=== PATIENT | male | born 1970 | race Caucasian/White ===

== ENCOUNTER 2018-08-11 09:34 | Emergency (ER) | payer SELFPAY ==
[2018-08-11] MEDS ORDERED: MECLIZINE HCL 25 MG TABLET PO ONE ×2 (09:54→11:21)
--- NOTE | 2018-08-11 09:55 | ER Document Report ---
ED Medical Screen (RME) - General Chief Complaint: Dizziness Stated Complaint: DIZZINESS Time Seen by Provider: 08/11/18 09:53 Mode of Arrival: Wheelchair Information source: Patient Notes: Patient states that he woke up this morning with blood pressure elevated at 145/101. Patient states that he was feeling dizzy which she describes a sensation as feeling lightheaded and he was diaphoretic. Patient complains of continued lightheadedness. Patient does report that he may have a sinus infection. hx: Hypertension I have greeted and performed a rapid initial assessment of this patient. A comprehensive ED assessment and evaluation of the patient, analysis of test results and completion of the medical decision making process will be conducted by additional ED providers. TRAVEL OUTSIDE OF THE [place] IN LAST 30 DAYS: No - Related Data Allergies/Adverse Reactions: Penicillins Allergy (Verified 08/11/18 09:35) Physical Exam - Vital signs Vitals: Temp Pulse Resp BP Pulse Ox 98.4 F 93 16 138/83 H 97 08/11/18 09:37 08/11/18 09:37 08/11/18 09:37 08/11/18 09:37 08/11/18 09:37 - Cardiovascular Rhythm: Regular Heart sounds: S1 appreciated, S2 appreciated Course - Vital Signs Vital signs: Temp Pulse Resp BP Pulse Ox 98.4 F 93 16 138/83 H 97 08/11/18 09:37 08/11/18 09:37 08/11/18 09:37 08/11/18 09:37 08/11/18 09:37
[2018-08-11 10:29] LABS: ABSOLUTE LYMPHOCYTES (AUTO) 0.8 10^3/uL (0.5-4.7); ABSOLUTE MONOCYTES (AUTO) 0.6 10^3/uL (0.1-1.4); BASOPHILS % (AUTO) 0.2 % (0-2); EOSINOPHILS % (AUTO) 0.3 % (0-6); HEMATOCRIT 47.3 % (37.9-51.0); HEMOGLOBIN 16.5 g/dL (13.5-17.0); LYMPHOCYTES % (AUTO) 8.6 % (13-45); MEAN CORPUSCULAR HEMOGLOBIN 31.8 pg (27.0-33.4); MEAN CORPUSCULAR HGB CONC 34.9 g/dL (32.0-36.0); MEAN CORPUSCULAR VOLUME 91 fl (80-97); MONOCYTES % (AUTO) 6.4 % (3-13); PLATELET COUNT 156 10^3/uL (150-450); RED BLOOD COUNT 5.18 10^6/uL (4.35-5.55); RED CELL DISTRIBUTION WIDTH 12.7 % (11.5-14.0); SEGMENTED NEUTROPHILS % (AUTO) 84.5 % (42-78); TOTAL CELLS COUNTED % (AUTO) 100 %; WHITE BLOOD COUNT 9.5 10^3/uL (4.0-10.5)
--- NOTE | 2018-08-11 10:40 | RADIOLOGY REPORT (SQ) ---
EXAM DESCRIPTION: CHEST 2 VIEWS COMPLETED DATE/TIME: 08/11/2018 10:28 am REASON FOR STUDY: lightheaded, elevated BP COMPARISON: None. EXAM PARAMETERS: NUMBER OF VIEWS: two views TECHNIQUE: Digital Frontal and Lateral radiographic views of the chest acquired. RADIATION DOSE: NA LIMITATIONS: none FINDINGS: LUNGS AND PLEURA: No opacities, masses or pneumothorax. No pleural effusion. MEDIASTINUM AND HILAR STRUCTURES: No masses or contour abnormalities. HEART AND VASCULAR STRUCTURES: Heart normal size. No evidence for failure. BONES: No acute findings. HARDWARE: None in the chest. OTHER: No other significant finding. IMPRESSION: NO ACUTE RADIOGRAPHIC FINDING IN THE CHEST. TECHNICAL DOCUMENTATION: JOB ID: [id number] [employer]- All Rights Reserved Reading location - IP/workstation name: [email or web address]
[2018-08-11 10:59] LABS: ALANINE AMINOTRANSFERASE 45 U/L (21-72); ALBUMIN 4.5 g/dL (3.5-5.0); ALKALINE PHOSPHATASE 86 U/L (38-126); ANION GAP 9 (5-19); ASPARTATE AMINO TRANSFERASE 32 U/L (17-59); BILIRUBIN,DIRECT 0.1 mg/dL (0.0-0.4); BILIRUBIN,TOTAL 0.7 mg/dL (0.2-1.3); BLOOD UREA NITROGEN 15 mg/dL (7-20); CALCIUM 9.1 mg/dL (8.4-10.2); CARBON DIOXIDE 27 mmol/L (22-30); CHLORIDE 104 mmol/L (98-107); GLUCOSE 102 mg/dL (75-110); POTASSIUM 4.4 mmol/L (3.6-5.0); SODIUM 140.2 mmol/L (137-145); TOTAL PROTEIN 7.4 g/dL (6.3-8.2)
[2018-08-11] MEDS ORDERED: NORMAL SALINE 1000 ML 1,000 ML IV ONE (11:20)
[2018-08-11] MEDS ORDERED: METHYLPREDNISOLONE INJ 125 MG/2 ML SDV IV ONE (11:21)
--- NOTE | 2018-08-11 12:59 | ER Document Report ---
Entered by CHANTAL DOMINGUEZ SCRIBE 08/11/18 1111 Acting as scribe for:KARLI MONTES DE OCA MD ED General - General Chief Complaint: Dizziness Stated Complaint: DIZZINESS Time Seen by Provider: 08/11/18 09:53 Primary Care Provider: REYNALDO DOCKERY MD [Primary Care Provider] - Follow up as needed Mode of Arrival: Wheelchair Notes: Patient is a 47-year-old male presenting to the emergency department complaining of dizziness with associated lightheadedness. Patient states that his blood pressure has been elevated he recorded it earlier at 141/80, patient states he takes blood pressure medication every evening but has not for awhile. Patient states he woke up and began feeling lightheaded, dizzy. Patient states that he "felt like I was dying". The patient feels that he has a sinus infection due to congestion at the bridge of his nose. He normally uses a Silvia pot to flush his sinuses but could not get any water to flow through the sinuses today. He has had minimal nasal discharge associated with this. TRAVEL OUTSIDE OF THE [place] IN LAST 30 DAYS: No - Related Data Allergies/Adverse Reactions: Penicillins Allergy (Verified 08/11/18 09:35) Past Medical History - General Information source: Patient - Social History Smoking Status: Never Smoker Cigarette use (# per day): No Chew tobacco use (# tins/day): No Frequency of alcohol use: None Drug Abuse: None Family History: Reviewed & Not Pertinent Patient has suicidal ideation: No Patient has homicidal ideation: No - Past Medical History Cardiac Medical History: Reports: Hx Hypertension Review of Systems - Review of Systems Constitutional: No symptoms reported EENT: No symptoms reported Cardiovascular: No symptoms reported Respiratory: No symptoms reported Gastrointestinal: No symptoms reported Genitourinary: No symptoms reported Male Genitourinary: No symptoms reported Musculoskeletal: No symptoms reported Skin: No symptoms reported Hematologic/Lymphatic: No symptoms reported Neurological/Psychological: See HPI, Other - Dizziness, lightheadedness -: Yes All other systems reviewed and negative Physical Exam - Vital signs Vitals: Temp Pulse Resp BP Pulse Ox 98.4 F 93 16 138/83 H 97 08/11/18 09:37 08/11/18 09:37 08/11/18 09:37 08/11/18 09:37 08/11/18 09:37 - Notes Notes: Physical Exam: General: Alert, appears well. HEENT: Normocephalic. Atraumatic. PERRL. Extraocular movements intact. Oropharynx clear. Slight erythema in the throat. No sinus percussion tenderness. Palpating the inner canthus regions does cause some discomfort behind the eyes consistent with this being a possible sphenoid sinus congestion problem. Neck: Supple. Non-tender. Respiratory: No respiratory distress. Clear and equal breath sounds bilaterally. Cardiovascular: Regular rate and rhythm. Abdominal: Normal Inspection. Non-tender. No distension. Normal Bowel Sounds. Back: Non-tender. No deformity or step off. Extremities: Moves all four extremities. Upper extremities: Normal inspection. Normal ROM. Lower extremities: Normal inspection. No edema. Normal ROM. Neurological: Patient is alert and oriented. There is no facial asymmetry or weakness. When I had the patient sit up he initially felt a little lightheaded but it resolved quickly. I had him look about back and forth up and down rapidly and that is did not provoke in the nystagmus, dizziness, or lightheaded feeling. Psychological: Normal affect. Normal Mood. Skin: Warm. Dry. Normal color. Course - Re-evaluation Re-evalutation: 08/11/18 13:59 Patient's blood pressure is now down to 118/77 after receiving 1 L of normal saline IV, and IV Solu-Medrol. Patient reports that the pressure he feels in his sinuses has resolved and he can breathe freely. He feels that he can now irrigate his sinuses with his Silvia pot. I had him sit up quickly, he noted that the lightheaded sensation did not occur this time. - Vital Signs Vital signs: Temp Pulse Resp BP Pulse Ox 98.4 F 93 12 118/77 98 08/11/18 09:37 08/11/18 09:37 08/11/18 12:01 08/11/18 12:01 08/11/18 12:01 - Laboratory Result Diagrams: 08/11/18 10:17 08/11/18 10:17 Laboratory results interpreted by me: 08/11/18 10:17 Seg Neutrophils % 84.5 H Lymphocytes % 8.6 L - EKG Interpretation by [place] EKG shows normal: Sinus rhythm, [place], Intervals, QRS Complexes, ST-T Waves Rate: Normal - 78 Rhythm: NSR [place]/QRS: RBBB - Incomplete right bundle branch block When compared to previous EKG there are: Previous EKG unavailable Discharge - Discharge Clinical Impression: Light-headed feeling, Sinus congestion Condition: Stable Disposition: HOME, SELF-CARE Additional Instructions: Your exam today suggests that your symptoms may be coming from some sinus congestion involving the sphenoid sinuses. You were given a long-acting steroid that should help keep the sinuses open. Try your Jones pot to irrigate your sinuses again when you get home. Be sure to drink plenty of fluids today and get plenty of rest. Follow-up with your primary care provider if not improving. RETURN TO THE EMERGENCY ROOM IF ANY NEW OR WORSENING SYMPTOMS. Referrals: REYNALDO DOCKERY MD [Primary Care Provider] - Follow up as needed Scribe Attestation: 08/11/18 13:00 I personally performed the services described in the documentation, reviewed and edited the documentation which was dictated to the scribe in my presence, and it accurately records my words and actions. I personally performed the services described in the documentation, reviewed and edited the documentation which was dictated to the scribe in my presence, and it accurately records my words and actions.
[2018-08-11] MEDS ORDERED: DEXAMETHASONE SOD PHOS INJ 10 MG/1 ML VIAL IV ONE (14:04)
[2018-08-11 15:28] VITALS: BP 116/79
--- NOTE | 2018-08-11 21:58 | EKG REPORT ---
SEVERITY:- ABNORMAL ECG - SINUS RHYTHM INCOMPLETE RIGHT BUNDLE BRANCH BLOCK : Confirmed by: Liu Eddy 11-Aug-2018 21:57:33
== END 2018-08-11 15:36 | disposition home or self-care (01) ==
LOC: ER 09:34
DX: R42 Dizziness and giddiness (principal); R09.81 Nasal congestion; I10 Essential (primary) hypertension; I45.10 Unspecified right bundle-branch block; Z88.0 Allergy status to penicillin
CPT/HCPCS: 93005; 99284; 96361; 96374; 96375; 36415; 85025; 80053; 84484; 71046; 93010; J2930; J7030; J1100